=== PATIENT | female | born 1955 | race Two or more races ===

== ENCOUNTER 2017-05-18 14:05 | Emergency (ER) | payer BC ==
[~2017-05-18] VITALS: Ht 162.6 cm; Wt 78.0 kg
[2017-05-18] MEDS ORDERED: Norco 5mg/325mg tab ORAL ONE (14:45)
[2017-05-18] MEDS ORDERED: Tetanus/Diptheria/Pertussis Vaccine 0.5ml Syr IM ONE (14:45)
--- NOTE | 2017-05-18 15:46 | Diagnostic Imaging Report ---
Indication: Pain Findings: 3 views of the left wrist were obtained. No acute fractures, malalignment, erosions or periostitis are identified. There is dorsal soft tissue swelling and irregularity consistent with a soft tissue laceration injury. Impression: No acute bony findings.
--- NOTE | 2017-05-18 16:59 | Emergency Room Report ---
History of Present Illness General Chief Complaint: Laceration Source: Patient Present Illness HPI 61-year-old female presents to the emergency department complaining of 8/10 in severity localized pain to the left forearm status post having her arm it pinched between a truck loading gait at a storage facility. Patient states that this happened approximately 30 minutes ago. Patient reports bleeding with multiple open wounds. Patient denies pain in the hand she denies taking blood thinning medications.She states her tetanus is not UTD. Denies numbness tingling or loss of sensation or gross motor movements of the extremities, incontinence of bowel or bladder. Denies CP, Palpitations, LOC, AMS, dizziness, Changes in Vision, Sensation, paresthesias, or a sudden severe headache. Allergies: Coded Allergies: No Known Allergies (Unverified , 05/18/17) Patient History Past Medical History: see triage record Past Surgical History: none Pertinent Family History: none Now: No Reviewed Nursing Documentation: PMH: Agreed, PSxH: Agreed Nursing Documentation-PMH Past Medical History: No Stated History Review of Systems All Other Systems: negative except mentioned in HPI Physical Exam Vital Signs Date Time Temp Pulse Resp B/P (MAP) Pulse Ox O2 Delivery O2 Flow Rate FiO2 05/18/17 13:34 98.2 97 16 151/73 99 Room Air Sp02 EP Interpretation: reviewed, normal General Appearance: no apparent distress, alert, GCS 15, non-toxic Head: normocephalic, atraumatic Eyes: bilateral eye normal inspection, bilateral eye PERRL ENT: hearing grossly normal, normal voice Neck: full range of motion, supple/symm/no masses Respiratory: lungs clear, normal breath sounds, speaking full sentences Cardiovascular #1: regular rate, rhythm, normal capillary refill Cardiovascular #2: 2+ radial (R), 2+ radial (L) Gastrointestinal: non tender, soft, no guarding, no rebound Rectal: deferred Genitourinary: normal inspection Musculoskeletal: back normal, gait/station normal, normal range of motion, tender - TTP in the left forearm, swelling noted, bruises and lacerations noted. Neurologic: alert, oriented x3, responsive, motor strength/tone normal, sensory intact, speech normal Psychiatric: judgement/insight normal, memory normal, mood/affect normal Skin: normal color, no rash, warm/dry, well hydrated, laceration - left forearm laceration approx 3 cm in length, with two avulsion lacerations that are each 0.5cm in length. Procedures Laceration/Wound Repair Laceration/Wound Repair : Consent: Verbal Wound Location: upper extremity - left forearm Wound's Depth, Shape: linear Wound Length (cm): 3 Wound Explored: clean Irrigated w/ Saline (ccs): 500 Anesthesia: 1% Lidocaine Volume Anesthetic (ccs): 3 Wound Debrided: minimal Wound Repaired With: sutures Suture Size/Type: 5:0 Number of Sutures: 3 Layer Closure?: No Sterile Dressing Applied?: Yes Splint Applied?: Yes Type of Splint Applied: volar wrist ( pre-fabricated) Sling Applied?: No Patient Tolerated: Well Complications: None Medical Decision Making PA Attestation Dr. Oneil is my supervising Physician whom patient management has been discussed with. Diagnostic Impression: Primary Impression: Laceration Additional Impressions: Contusion Qualified Codes: S50.12XA - Contusion of left forearm, initial encounter Avulsion of forearm Qualified Codes: S51.802A - Unspecified open wound of left forearm, initial encounter ER Course 61-year-old female presents to the emergency department complaining of 8/10 in severity localized pain to the left forearm status post having her arm it pinched between a truck loading gait at a storage facility. Patient states that this happened approximately 30 minutes ago. Patient reports bleeding with multiple open wounds. Patient denies pain in the hand she denies taking blood thinning medications.She states her tetanus is not UTD. Denies numbness tingling or loss of sensation or gross motor movements of the extremities, incontinence of bowel or bladder. Denies CP, Palpitations, LOC, AMS, dizziness, Changes in Vision, Sensation, paresthesias, or a sudden severe headache. Ddx considered but are not limited to laceration, tendon injury, cellulitis, amputation Vital signs: are WNL, pt. is afebrile H&PE are most consistent with: left forearm laceration approx 3 cm in length , with two avulsion lacerations that are each 0.5cm in length. ORDERS: -[facility] PO -- X-ray Left wrist 3 views - negative for fx, Dislocation, or significant soft tissue injury, per preliminary read in ED by Dr. Oneil - interpretation is scribed by PA. ED INTERVENTIONS: -Tetanus vaccine was administered as pt. vaccination status was unknown. - The wound was copiously irrigated with normal saline, and explored for foreign body for which no FB was found. - pt. is anesthetized with 1%lidocaine 3cc - The wound was approximated and closed using 3 interrupted vertical mattress 5.0 Prolene sutures. -Bacitracin and sterile dressing is applied. to sutured laceration as well as the two avulsion lacerations that will be left alone to heal by secondary intent. Discussed with patient: That we make every effort to approximate the laceration as best as we can so that scarring will be as cosmetically pleasing as possible with our limited cosmetic skill set in the Emergency dept. Regardless of our best efforts there will be scarring after laceration repair. The extent of scarring is unknown at this time. - volar wrist Splint applied to the left wrist by health information technician. Pt. remains neurovascularly intact. DISCHARGE: At this time pt. is stable for d/c to home. Will provide printed patient care instructions, and any necessary prescriptions. Care plan and follow up instructions have been discussed with the patient prior to discharge. Last Vital Signs Date Time Temp Pulse Resp B/P (MAP) Pulse Ox O2 Delivery O2 Flow Rate FiO2 05/18/17 13:34 98.2 97 16 151/73 99 Room Air Disposition: HOME, SELF-CARE Condition: Stable Scripts Cephalexin* (KEFLEX*) 500 Mg Capsule 500 MG ORAL EVERY 12 HOURS for 7 Days, #14 CAP 0 Refills Prov: Vero Gray 05/18/17 Bacitracin/Polymyxin B Sulfate (BACITRACIN-POLYMYXIN OINTMENT) 28.35 Gm Oint...g. 1 APPLIC TP BID, #28.3 GM Prov: Vero Gray.Ninfa 05/18/17 Acetaminophen* (TYLENOL EXTRA STRENGTH*) 500 Mg Tablet 500 MG ORAL Q6H, #20 TAB 0 Refills Prov: Vero Gray 05/18/17 Patient Instructions: Laceration Care, Adult Additional Instructions: Take medications as directed. SUTURES REMOVED in 7 Dayd Follow up with a Primary Care Provider in 3-5 days, even if your symptoms have resolved. --Please review list of primary care clinics, if you do not already have a primary care provider Return sooner to ED if new symptoms occur, or current symptoms become worse. - Please note that this Emergency Department Report was dictated using [employer] commodity manager technology software, occasionally this can lead to erroneous entry secondary to interpretation by the dictation equipment. Vero Gray May 18, 2017 16:59
[2017-05-18] MEDS ORDERED: CEPHALEXIN500 MG ORAL (17:00)
[2017-05-18] MEDS ORDERED: Bacitracin Oint UD TOPIC ONE (17:00)
[2017-05-18] MEDS ORDERED: TYLENOL EXTRA500 MG ORAL (17:00)
[2017-05-18] MEDS ORDERED: BACITRACIN-P28.35 GM TP (17:00)
[2017-05-18 17:30] VITALS: BP 124/71
== END 2017-05-18 17:35 | disposition home or self-care (01) ==
LOC: EDBD 14:05 → EMR 17:26
DX: S51.812A Laceration without foreign body of left forearm, initial encounter (principal); W45.8XXA Other foreign body or object entering through skin, initial encounter; Y92.89 Other specified places as the place of occurrence of the external cause; Z23 Encounter for immunization
CPT/HCPCS: 90471; 90715; 99284

== ENCOUNTER 2019-07-07 21:11 | Emergency (ER) | payer BC, OTHER ==
[~2019-07-07] VITALS: Ht 162.6 cm; Wt 63.5 kg
[~2019-07-07 21:11] MED LIST: BACITRACIN-P28.35 GM TP; CEPHALEXIN500 MG ORAL; TYLENOL EXTRA500 MG ORAL
--- NOTE | 2019-07-07 21:15 | NUR ---
ED Nurse Note: Pt waled in to ED with family menbers. Pt is aaox4, vss, with no acute distress. Pt is cooperative and well groomed. Pt c/o of forehead, lower back, left sholder and left leg pain with no radiating pain. patient had a mechanical fall x 1200. Pt has small needle size cut on forehead.
[2019-07-07 21:20] VITALS: BP 145/73
[2019-07-07] MEDS ORDERED: TRAZODONE HCL150 MG ORAL (21:21)
[2019-07-07] MEDS ORDERED: LEXAPRO10 MG ORAL (21:21)
[2019-07-07] MEDS ORDERED: IBUPROFEN600 MG ORAL (21:39)
--- NOTE | 2019-07-07 21:40 | Emergency Room Report ---
History of Present Illness General Chief Complaint: Multiple Trauma/Fall Source: Patient Present Illness HPI Is a 64-year-old female with history of high blood pressure. She presents with chief complaint of body pain from a fall. She was in the kitchen at noon today. She slipped and fell hit her head on the stove. She complained of pain to the left side of the head. She also complained of neck and back pain. Also with left shoulder pain and left leg pain. Able to walk around without any difficulty. Pain is 8 out of 10. Worse with movement. No nausea no vomiting. No loss of consciousness. No focal deficit. Movement made it worse. Palpation made it worse. Rest made it better. Allergies: Coded Allergies: No Known Allergies (Unverified , 05/18/17) Patient History Past Medical History: see triage record, old chart reviewed, HTN Past Surgical History: other Pertinent Family History: none Social History: Denies: smoking Now: No Immunizations: other Reviewed Nursing Documentation: PMH: Agreed; PSxH: Agreed Nursing Documentation-PMH Hx Hypertension: Yes Review of Systems Eye: Denies: eye pain, blurred vision ENT: Denies: ear pain, nose congestion, throat swelling Respiratory: Denies: cough, shortness of breath Cardiovascular: Denies: chest pain, palpitations Gastrointestinal: Denies: abdominal pain, diarrhea, nausea, vomiting Musculoskeletal: Reports: back pain, joint pain, muscle pain Skin: Denies: rash Neurological: Reports: headache; Denies: numbness Endocrine: Denies: increased thirst, increased urine Hematologic/Lymphatic: Denies: easy bruising All Other Systems: negative except mentioned in HPI Physical Exam Vital Signs Date Time Temp Pulse Resp B/P (MAP) Pulse Ox O2 Delivery O2 Flow Rate FiO2 07/07/19 21:15 99.0 72 14 148/71 (96) 96 Room Air Vitals with high blood pressure Sp02 EP Interpretation: reviewed, normal General Appearance: well appearing, no apparent distress, alert Head: normocephalic, other - Mild tenderness to the left parietal frontal area. No hematoma. Eyes: bilateral eye PERRL, bilateral eye EOMI ENT: hearing grossly normal, normal pharynx Neck: full range of motion, supple, no meningismus, tender - Diffuse tenderness. No step-off. Full range of motion. Respiratory: chest non-tender, lungs clear, normal breath sounds Cardiovascular #1: regular rate, rhythm, no murmur Gastrointestinal: normal bowel sounds, non tender, no mass, no organomegaly, no bruit, non-distended Musculoskeletal: back normal - Diffuse lower lumbar tenderness. No step-off. No anesthesia. Mild tenderness to the left deltoid and right thigh. This is over the muscle and not the bone. Full range of motion of the joints., normal range of motion, gait/station normal Psychiatric: mood/affect normal Medical Decision Making Diagnostic Impression: Primary Impression: Multiple injuries due to trauma Additional Impressions: Head injury, acute Qualified Codes: S09.90XA - Unspecified injury of head, initial encounter Neck muscle strain Qualified Codes: S16.1XXA - Strain of muscle, fascia and tendon at neck level , initial encounter Lumbar strain Qualified Codes: S39.012A - Strain of muscle, fascia and tendon of lower back , initial encounter Contusion Qualified Codes: S40.012A - Contusion of left shoulder, initial encounter Contusion of leg, right, multiple sites Qualified Codes: S80.11XA - Contusion of right lower leg, initial encounter ER Course Patient with soft tissue injury from a fall. No evidence of any fracture or dislocation. No evidence of any bleed or skull fracture. Will discharge home. CT/MRI/US Diagnostic Results CT/MRI/US Diagnostic Results #1: Imaging Test Ordered: CT head Impression Negative per radiologist CT/MRI/US Diagnostic Results #2: Imaging Test Ordered: CT C-spine Impression No acute fracture or dislocation per radiologist. Degenerative changes. CT/MRI/US Diagnostic Results #3: Imaging Test Ordered: CT L-spine Impression Negative per radiologist. Degenerative changes. Last Vital Signs Date Time Temp Pulse Resp B/P (MAP) Pulse Ox O2 Delivery O2 Flow Rate FiO2 07/07/19 21:15 99.0 72 14 148/71 (96) 96 Room Air Status: improved Disposition: HOME, SELF-CARE Condition: Stable Scripts Ibuprofen* (MOTRIN*) 600 Mg Tablet 600 MG ORAL THREE TIMES A DAY, #30 TAB 0 Refills Prov: Grupo Collado MD 07/07/19 Additional Instructions: Follow-up with your doctor in 7 days. Return if symptoms worsen. Grupo Collado MD Jul 07, 2019 21:40
--- NOTE | 2019-07-07 21:59 | NUR ---
ED Nurse Note: Pt back from CT
[2019-07-07] MEDS ORDERED: Tylenol #3 tab (300mg/30mg) ORAL ONE (22:00)
--- NOTE | 2019-07-07 22:22 | Diagnostic Imaging Report ---
EXAM: CT Head Without Intravenous Contrast CLINICAL HISTORY: TRAUMA TECHNIQUE: Axial computed tomography images of the head/brain without intravenous contrast. CTDI is 60 mGy and DLP is 1244 mGy-cm. One or more of the following dose reduction techniques were used: automated exposure control, adjustment of the mA and/or kV according to patient size, use of iterative reconstruction technique. COMPARISON: No relevant prior studies available. FINDINGS: Brain: Unremarkable. No hemorrhage. No significant white matter disease. No edema. Ventricles: Unremarkable. No ventriculomegaly. Bones/joints: Unremarkable. No acute fracture. Soft tissues: Unremarkable. Sinuses: Unremarkable as visualized. No acute sinusitis. Mastoid air cells: Unremarkable as visualized. No mastoid effusion. Other findings: Motion degraded study. IMPRESSION: No acute findings on study degraded by motion.
--- NOTE | 2019-07-07 22:42 | Diagnostic Imaging Report ---
EXAM: CT Cervical Spine Without Intravenous Contrast CLINICAL HISTORY: TRAUMA TECHNIQUE: Axial computed tomography images of the cervical spine without intravenous contrast. CTDI is 6 mGy and DLP is 140 mGy-cm. One or more of the following dose reduction techniques were used: automated exposure control, adjustment of the mA and/or kV according to patient size, use of iterative reconstruction technique. COMPARISON: No relevant prior studies available. FINDINGS: Vertebrae: No evidence of fracture or malalignment. Discs/spinal canal/neural foramina: No acute findings. No spinal canal stenosis. Soft tissues: Unremarkable. Other findings: Motion degraded study. IMPRESSION: No acute fracture or or malalignment identified on a motion degraded study.
[2019-07-07 22:43] VITALS: BP 131/53
--- NOTE | 2019-07-07 22:50 | Diagnostic Imaging Report ---
EXAM: CT Lumbar Spine Without Intravenous Contrast CLINICAL HISTORY: TRAUMA TECHNIQUE: Axial computed tomography images of the lumbar spine without intravenous contrast. CTDI is 17.5 mGy and DLP is 534 mGy-cm. One or more of the following dose reduction techniques were used: automated exposure control, adjustment of the mA and/or kV according to patient size, use of iterative reconstruction technique. COMPARISON: No relevant prior studies available. FINDINGS: Artifacts: Motion degraded study. Vertebrae: Multilevel degenerative changes. Bilateral spondylolysis L4/L5 and L5/S1. Minimal anterolisthesis L4 on L5 and mild retrolisthesis of L5 on S1. No evidence of acute fracture. Discs/spinal canal/neural foramina: No acute findings. No spinal canal stenosis. Soft tissues: Unremarkable. IMPRESSION: No evidence of acute fracture
[2019-07-07 23:10] VITALS: BP 135/60
--- NOTE | 2019-07-07 23:10 | NUR ---
ER DISCHARGE NOTE: Patient is cleared to be discharged per ERMD, pt is aox4, on room air, with stable vital signs. pt was given dc and prescription instructions, pt was able to verbalize understanding, pt id band removed without complications. pt is able to ambulate with steady gait. pt took all belongings. Pt states pain is 3/10.
== END 2019-07-07 23:10 | disposition home or self-care (01) ==
LOC: EMR 22:53
DX: S09.90XA Unspecified injury of head, initial encounter (principal); S16.1XXA Strain of muscle, fascia and tendon at neck level, initial encounter; S39.012A Strain of muscle, fascia and tendon of lower back, initial encounter; S40.012A Contusion of left shoulder, initial encounter; S80.11XA Contusion of right lower leg, initial encounter; W01.198A Fall on same level from slipping, tripping and stumbling with subsequent striking against other object, initial encounter; Y93.9 Activity, unspecified; Y92.010 Kitchen of single-family (private) house as the place of occurrence of the external cause
CPT/HCPCS: 70450; 72125; 72131; 99284